=== PATIENT | female | born 1940 | race Hispanic/Latino ===

== ENCOUNTER 2018-09-17 08:19 | Outpatient (CLI) | payer MEDICARE | END 2018-09-17 08:20 | disposition home or self-care (01) | LOC: RAD 08:19 ==

== ENCOUNTER 2018-10-02 06:35 | Day surgery (SDC) | payer MEDICARE ==
[2018-09-24 08:52] VITALS: BMI 26.4
[2018-10-02 07:02] VITALS: TEMP 98.2
[2018-10-02] MEDS ORDERED: Etomidate 20 mg/10ml Inj IV ONE (08:06)
[2018-10-02] MEDS ORDERED: Propofol 10 mg/ml Inj (20 ML) ONE ×2 (08:06→08:27)
[2018-10-02] MEDS ORDERED: Sodium Chloride 0.9% 1,000 ML IV SCH (09:15)
[2018-10-02 09:50] VITALS: RESP 16
[2018-10-02 10:07] VITALS: BP 132/57; PULSE 56; O2SAT 100
== END 2018-10-02 10:24 | disposition home or self-care (01) ==
LOC: ENDO 06:35
PROVIDERS: ATTEND Specialist
DX: K29.50 Unspecified chronic gastritis without bleeding (principal); B96.81 Helicobacter pylori [H. pylori] as the cause of diseases classified elsewhere; K31.89 Other diseases of stomach and duodenum; D50.9 Iron deficiency anemia, unspecified; K44.9 Diaphragmatic hernia without obstruction or gangrene; K22.8 Other specified diseases of esophagus; K57.30 Diverticulosis of large intestine without perforation or abscess without bleeding; K63.3 Ulcer of intestine
CPT/HCPCS: 43239; 45380; 88305; 88342; J2001; J2704; J7030; J7040